=== PATIENT | male | born 1990 | race African-American/Black ===

== ENCOUNTER 2022-11-04 20:12 | Inpatient (IN) | payer OTHER ==
[2022-11-04 20:49] VITALS: BMI 22.4
[2022-11-04] MEDS ORDERED: LORazepam 1 MG TABLET PO PRN (21:14)
[2022-11-04] MEDS ORDERED: guaiFENesin 600 MG TABLET.ER (FP) PO PRN (21:14)
[2022-11-04] MEDS ORDERED: BENZOCAINE/MENTHOL (CHLORASEPTIC ) LOZENGE MM PRN (21:14)
[2022-11-04] MEDS ORDERED: NALOXONE HCL 0.4 MG/ML VIAL IM PRN (21:14)
[2022-11-04] MEDS ORDERED: MAGNESIUM HYDROX 2400MG/30ML ORAL SUSPENSION 30 ML CUP PO PRN (21:14)
[2022-11-04] MEDS ORDERED: BISMUTH SUBSALICYLATE 524 MG/30 ML PO PRN (21:14)
[2022-11-04] MEDS ORDERED: IBUPROFEN 400 MG TABLET (FP) PO PRN (21:14)
[2022-11-04] MEDS ORDERED: IBUPROFEN 600 MG TABLET (FP) PO PRN (21:14)
[2022-11-04] MEDS ORDERED: ACETAMINOPHEN 325 MG TABLET (FP) PO PRN (21:14)
[2022-11-04] MEDS ORDERED: hydrOXYzine PAMOATE 25 MG CAPSULE (FP) PO PRN (21:14)
[2022-11-04] MEDS ORDERED: NICOTINE POLACRILEX 2 MG GUM BUC PRN (21:14)
[2022-11-04] MEDS ORDERED: LOPERAMIDE HCL 2 MG CAPSULE PO PRN (21:14)
[2022-11-04] MEDS ORDERED: NALOXONE HCL (KLOXXADO) 8 MG SPRAY NS PRN (21:14)
[2022-11-04] MEDS ORDERED: BENZONATATE 200 MG CAPSULE PO PRN (21:14)
[2022-11-04] MEDS ORDERED: MAG HYDROX/AL HYDROX/SIMETH 30 ML UNIT-DOSE CUP PO PRN (21:14)
[2022-11-04] MEDS ORDERED: POLYETHYLENE GLYCOL (HEALTHYLAX) 3350 17 GM PACKET PO PRN (21:14)
[2022-11-04] MEDS ORDERED: DICYCLOMINE HCL 10 MG CAPSULE PO PRN (21:14)
[2022-11-04] MEDS ORDERED: LORazepam 2 MG TABLET PO ONE (21:14)
[2022-11-04] MEDS ORDERED: ONDANSETRON *ODT* 4 MG TABLET ONE (21:31)
[2022-11-04] MEDS ORDERED: LORazepam 2 MG TABLET ONE (21:31)
[2022-11-04] MEDS: ONDANSETRON *ODT* 4 MG TABLET SL PRN (21:34)
[2022-11-04] MEDS: THIAMINE HCL 100 MG TABLET (FP) PO SCH (22:26)
[2022-11-04] MEDS: MELATONIN 5 MG TABLETS PO SCH (22:27)
[2022-11-04] MEDS: LORazepam 2 MG TABLET PO SCH (23:29)
[2022-11-05] MEDS: LORazepam 2 MG TABLET PO SCH ×4 (05:03→22:53)
[2022-11-05] MEDS: ONDANSETRON *ODT* 4 MG TABLET SL PRN (05:04)
[2022-11-05] MEDS ORDERED: NICOTINE 14 MG/24 HOURS TOPICAL PATCH TD SCH (10:00)
[2022-11-05] MEDS ORDERED: PRENATAL VITAMINS W/ FOLIC ACID TABLET (FP) PO SCH (10:00)
[2022-11-05] MEDS: RALTEGRAVIR POTASSIUM 400 MG TAB PO SCH ×2 (10:14→23:52)
[2022-11-05 10:41] LABS: HEMATOCRIT 36.6 % (35.4-49); HEMOGLOBIN 12.4 GM/dL (11.7-16.9); MCH 28.9 pg (25.7-33.7); MCHC 33.9 g/dl (32.0-35.9); MEAN CELL VOLUME 85.2 fl (80-96); MEAN PLT VOLUME 8.3 fl (7.5-11.1); PLATELET COUNT 245 10^3/uL (134-434); RBC 4.29 M/mm3 (4.00-5.60); WHITE BLOOD COUNT 4.9 K/mm3 (4.0-10.0)
[2022-11-05] MEDS ORDERED: methaDONE HCL 10 MG TABLET (FOR DETOX USE ONLY) PO ONE ×2 (10:55→11:30)
[2022-11-05 11:00] LABS: CALCIUM 9.5 mg/dL (8.5-10.1)
[2022-11-05 11:01] LABS: ALBUMIN 4.4 g/dl (3.4-5.0); BLOOD UREA NITROGEN 32.8 mg/dL (7-18)
[2022-11-05 11:04] LABS: CREATININE 1.2 mg/dL (0.55-1.3)
[2022-11-05 11:05] LABS: BILIRUBIN,TOTAL 0.8 mg/dL (0.2-1)
[2022-11-05 11:06] LABS: TOT PROT 8.2 g/dl (6.4-8.2)
[2022-11-05] MEDS ORDERED: EMTRICITABINE 200MG/TENOFOVIR 300MG PO SCH (14:14)
[2022-11-05 16:42] VITALS: RESP 18
[2022-11-05 21:54] VITALS: TEMP 98
[2022-11-05] MEDS: THIAMINE HCL 100 MG TABLET (FP) PO SCH (22:52)
[2022-11-05] MEDS: MELATONIN 5 MG TABLETS PO SCH (22:52)
[2022-11-06] MEDS ORDERED: LORazepam 1 MG TABLET PO SCH (05:00)
[2022-11-06 06:48] VITALS: BP 103/60; PULSE 78
[2022-11-07] MEDS ORDERED: LORazepam 0.5 MG TABLET PO PRN
[2022-11-07] MEDS ORDERED: LORazepam 0.5 MG TABLET PO SCH (05:00)
[2022-11-07] MEDS ORDERED: methaDONE HCL 10 MG TABLET (FOR DETOX USE ONLY) PO ONE ×2 (10:00)
[2022-11-08] MEDS ORDERED: LORazepam 0.5 MG TABLET PO ONE (05:00)
[2022-11-09] MEDS ORDERED: methaDONE HCL 10 MG TABLET (FOR DETOX USE ONLY) PO ONE (10:00)
== END 2022-11-06 08:00 | disposition left against medical advice (07) | DRG 770 ==
LOC: YASAS 20:12 → Y6N 21:42
PROVIDERS: ADMIT Allergy & Immunology; ATTEND Surgery
PROC: HZ2ZZZZ Detoxification Services for Substance Abuse Treatment (ICD-10-PCS; principal; 2022-11-04)
DX: F10.230 Alcohol dependence with withdrawal, uncomplicated (principal); F11.20 Opioid dependence, uncomplicated; F14.20 Cocaine dependence, uncomplicated; F17.210 Nicotine dependence, cigarettes, uncomplicated; F32.A Depression, unspecified; F19.982 Other psychoactive substance use, unspecified with psychoactive substance-induced sleep disorder; Z21 Asymptomatic human immunodeficiency virus [HIV] infection status; Z86.69 Personal history of other diseases of the nervous system and sense organs; Z86.19 Personal history of other infectious and parasitic diseases; Z59.00 Homelessness unspecified
CPT/HCPCS: 36415; 80053; 85027; 86593; 86780; 87635; 93005; 93010; Q0162

== ENCOUNTER 2022-12-06 13:39 | Inpatient (IN) | payer OTHER ==
[2022-12-06 14:04] VITALS: BMI 24.1
[2022-12-06] MEDS ORDERED: hydrOXYzine PAMOATE 25 MG CAPSULE (FP) PO PRN (16:32)
[2022-12-06] MEDS ORDERED: LORazepam 1 MG TABLET PO PRN (16:32)
[2022-12-06] MEDS ORDERED: ACETAMINOPHEN 325 MG TABLET (FP) PO PRN (16:32)
[2022-12-06] MEDS ORDERED: BENZONATATE 200 MG CAPSULE PO PRN (16:32)
[2022-12-06] MEDS ORDERED: ONDANSETRON *ODT* 4 MG TABLET SL PRN (16:32)
[2022-12-06] MEDS ORDERED: POLYETHYLENE GLYCOL (HEALTHYLAX) 3350 17 GM PACKET PO PRN (16:32)
[2022-12-06] MEDS ORDERED: NALOXONE HCL (KLOXXADO) 8 MG SPRAY NS PRN (16:32)
[2022-12-06] MEDS ORDERED: IBUPROFEN 400 MG TABLET (FP) PO PRN (16:32)
[2022-12-06] MEDS ORDERED: guaiFENesin 600 MG TABLET.ER (FP) PO PRN (16:32)
[2022-12-06] MEDS ORDERED: MAG HYDROX/AL HYDROX/SIMETH 30 ML UNIT-DOSE CUP PO PRN (16:32)
[2022-12-06] MEDS ORDERED: LOPERAMIDE HCL 2 MG CAPSULE PO PRN (16:32)
[2022-12-06] MEDS ORDERED: NICOTINE POLACRILEX 2 MG GUM BUC PRN (16:32)
[2022-12-06] MEDS ORDERED: DICYCLOMINE HCL 10 MG CAPSULE PO PRN (16:32)
[2022-12-06] MEDS ORDERED: NALOXONE HCL 0.4 MG/ML VIAL IM PRN (16:32)
[2022-12-06] MEDS ORDERED: BENZOCAINE/MENTHOL (CHLORASEPTIC ) LOZENGE MM PRN (16:32)
[2022-12-06] MEDS ORDERED: MAGNESIUM HYDROX 2400MG/30ML ORAL SUSPENSION 30 ML CUP PO PRN (16:32)
[2022-12-06] MEDS ORDERED: BISMUTH SUBSALICYLATE 524 MG/30 ML PO PRN (16:32)
[2022-12-06] MEDS ORDERED: IBUPROFEN 600 MG TABLET (FP) PO ONE (16:39)
[2022-12-06] MEDS ORDERED: LORazepam 1 MG TABLET ONE (16:39)
[2022-12-06] MEDS: IBUPROFEN 600 MG TABLET (FP) PO PRN (18:02)
[2022-12-06] MEDS: MELATONIN 5 MG TABLETS PO SCH (22:02)
[2022-12-06] MEDS: THIAMINE HCL 100 MG TABLET (FP) PO SCH (22:02)
[2022-12-06] MEDS: LORazepam 2 MG TABLET PO SCH (22:02)
[2022-12-06] MEDS: METHOCARBAMOL 500 MG TABLET PO PRN (22:02)
[2022-12-07] MEDS: methaDONE 40 MG, methaDONE 30 MG PO SCH (05:45)
[2022-12-07] MEDS: LORazepam 2 MG TABLET PO SCH ×4 (05:46→22:07)
[2022-12-07] MEDS ORDERED: methaDONE HCL 10 MG TABLET PO SCH (06:00)
[2022-12-07] MEDS: PRENATAL VITAMINS W/ FOLIC ACID TABLET (FP) PO SCH (10:31)
[2022-12-07] MEDS: EMTRICITABINE 200MG/TENOFOVIR 300MG PO SCH (11:03)
[2022-12-07] MEDS: GABAPENTIN 100 MG CAPSULE PO SCH ×2 (14:28→22:07)
[2022-12-07] MEDS: METHOCARBAMOL 500 MG TABLET PO PRN (22:07)
[2022-12-07] MEDS: MELATONIN 5 MG TABLETS PO SCH (22:07)
[2022-12-07] MEDS: THIAMINE HCL 100 MG TABLET (FP) PO SCH (22:07)
[2022-12-08] MEDS: methaDONE 40 MG, methaDONE 30 MG PO SCH (05:46)
[2022-12-08] MEDS: LORazepam 1 MG TABLET PO SCH ×4 (05:47→22:05)
[2022-12-08] MEDS: GABAPENTIN 100 MG CAPSULE PO SCH ×3 (05:47→21:39)
[2022-12-08] MEDS: EMTRICITABINE 200MG/TENOFOVIR 300MG PO SCH (10:04)
[2022-12-08] MEDS: PRENATAL VITAMINS W/ FOLIC ACID TABLET (FP) PO SCH (10:04)
[2022-12-08] MEDS ORDERED: EMTRICITABINE 200MG/TENOFOVIR 300MG PO SCH (12:29)
[2022-12-08] MEDS: DOLUTEGRAVIR SODIUM 50 MG TABLET (NON-FORMULARY) PO SCH (13:05)
[2022-12-08] MEDS: THIAMINE HCL 100 MG TABLET (FP) PO SCH (21:39)
[2022-12-08] MEDS: MELATONIN 5 MG TABLETS PO SCH (21:39)
[2022-12-08] MEDS: METHOCARBAMOL 500 MG TABLET PO PRN (21:39)
[2022-12-09] MEDS ORDERED: LORazepam 0.5 MG TABLET PO PRN
[2022-12-09] MEDS: IBUPROFEN 600 MG TABLET (FP) PO PRN (03:57)
[2022-12-09] MEDS: METHOCARBAMOL 500 MG TABLET PO PRN (03:57)
[2022-12-09] MEDS: LORazepam 0.5 MG TABLET PO SCH ×3 (05:52→17:35)
[2022-12-09] MEDS: GABAPENTIN 100 MG CAPSULE PO SCH ×2 (05:53→13:08)
[2022-12-09] MEDS: DOLUTEGRAVIR SODIUM 50 MG TABLET (NON-FORMULARY) PO SCH (07:03)
[2022-12-09] MEDS ORDERED: methaDONE HCL 10 MG TABLET PO SCH (09:15)
[2022-12-09] MEDS ORDERED: methaDONE 40 MG, methaDONE 30 MG PO SCH (09:30)
[2022-12-09] MEDS: PRENATAL VITAMINS W/ FOLIC ACID TABLET (FP) PO SCH (09:34)
[2022-12-09 13:59] VITALS: RESP 16
[2022-12-09 16:49] VITALS: BP 115/72; PULSE 87; TEMP 97.4
[2022-12-10] MEDS ORDERED: LORazepam 0.5 MG TABLET PO ONE (05:00)
== END 2022-12-09 17:44 | disposition home or self-care (01) | DRG 773 ==
LOC: YASAS 13:39 → Y3N 17:22
PROVIDERS: ADMIT Allergy & Immunology; ATTEND Surgery
PROC: HZ2ZZZZ Detoxification Services for Substance Abuse Treatment (ICD-10-PCS; principal; 2022-12-06)
DX: F10.230 Alcohol dependence with withdrawal, uncomplicated (principal); F11.20 Opioid dependence, uncomplicated; F17.210 Nicotine dependence, cigarettes, uncomplicated; F10.280 Alcohol dependence with alcohol-induced anxiety disorder; F10.282 Alcohol dependence with alcohol-induced sleep disorder; U07.1 COVID-19; Z86.19 Personal history of other infectious and parasitic diseases; Z56.0 Unemployment, unspecified; Z59.00 Homelessness unspecified
CPT/HCPCS: 87635; 87811